=== PATIENT | female | born 1970 | race Caucasian/White ===

== ENCOUNTER 2024-08-06 06:32 | Observation (INO) | payer BC, OTHER ==
[2024-08-03 13:20] LABS: BASOPHILS # (AUTO) 0.1 (0.0-0.1); EOSINOPHILS # (AUTO) 0.1 (0.0-0.4); HEMATOCRIT 49.4 % (34.2-44.1); HEMOGLOBIN 15.6 g/dL (12.0-16.0); LYMPHOCYTES # (AUTO) 2.4 (1.0-3.2); LYMPHOCYTES % 35.8 % (18.0-39.1); MEAN CORPUSCULAR HEMOGLOBIN 29.9 pg (28-32); MEAN CORPUSCULAR HGB CONC 31.6 g/dL (31-35); MEAN CORPUSCULAR VOLUME 94.8 fL (81-99); MONOCYTES # (AUTO) 0.7 (0.2-0.8); MONOCYTES % 10.1 % (4.4-11.3); NEUTROPHILS # (AUTO) 3.5 (2.1-6.9); PLATELET COUNT 260 x10e3/uL (140-360); RED BLOOD COUNT 5.21 x10e6/uL (3.6-5.1); RED CELL DISTRIBUTION WIDTH 13.2 % (11.7-14.4); WHITE BLOOD COUNT 6.73 x10e3/uL (4.8-10.8)
[2024-08-03 13:24] LABS: INR 1.02; PROTHROMBIN TIME 13.9 seconds (11.9-14.5)
[2024-08-03 13:25] LABS: PARTIAL THROMBOPLASTIN TIME 25.1 seconds (23.8-35.5)
[2024-08-03 13:26] LABS: ANION GAP 11.8 mmol/L (8-16); CALCIUM 9.8 mg/dL (8.4-10.2); CREATININE, SERUM 0.88 mg/dL (0.57-1.11); POTASSIUM 4.8 mmol/L (3.5-5.1)
[~2024-08-06] VITALS: Ht 167.6 cm; Wt 75.0 kg
[~2024-08-06 06:32] MED LIST: ADDERALL 20 MG20 MG PO; CARVEDILOL3.125 MG PO; CLOPIDOGREL75 MG PO; CYMBALTA30 MG PO; FISH OIL 1,2001 EACH PO; LIPITOR20 MG PO; MAGNESIUM CITR125 MG PO; NEURONTIN300 MG PO; TOPAMAX50 MG PO
[2024-08-06] MEDS ORDERED: Vancomycin IV 1 GM VIAL ONE (07:09)
[2024-08-06] MEDS ORDERED: THROMBIN FOR SOLN 5,000 UNIT VIAL ONE (07:09)
[2024-08-06] MEDS: Vancomycin IV 1 GM VIAL ONE (07:32)
[2024-08-06] MEDS: SODIUM CHLORIDE 0.9% 250ML 250 ML ONE (07:33)
[2024-08-06] MEDS: LACTATED RINGER'S 1,000 ML ONE (07:34)
[2024-08-06] MEDS ORDERED: HYDROCODON-ACE1 EA12 PO (11:09)
[2024-08-06] MEDS ORDERED: MAGNESIUM/ALUMINUM/SIMETHICONE 30 ML UDC PO PRN (11:15)
[2024-08-06] MEDS ORDERED: MORPHINE SULFATE 5 MG/ML VIAL IM PRN (11:15)
[2024-08-06] MEDS: LACTATED RINGER'S 1,000 ML IV SCH (11:15)
[2024-08-06] MEDS ORDERED: ACETAMINOPHEN 325 MG TAB PO PRN (11:15)
[2024-08-06] MEDS ORDERED: ONDANSETRON HCL INJ 2MG/ML 2ML 2 MG/ML VIAL IV PRN (11:15)
[2024-08-06] MEDS ORDERED: PROMETHAZINE HCL (IM) 25 MG/ML VIAL IM PRN (11:15)
[2024-08-06] MEDS ORDERED: CARISOPRODOL 350 MG TAB PO PRN (11:15)
[2024-08-06] MEDS ORDERED: ZOLPIDEM TARTRATE 5 MG TAB PO PRN (11:15)
[2024-08-06] MEDS: FENTANYL CITRATE/PF 100MCG/2 ML INJ ONE (11:26)
[2024-08-06 12:15] VITALS: BP 138/92; PULSE 63; RESP 16; TEMP 98.2; O2SAT 96
[2024-08-06 12:45] VITALS: BP 138/90; PULSE 67; RESP 16; TEMP 98.2; O2SAT 95
[2024-08-06] MEDS ORDERED: SEVOFLURANE INHAL SOLN 250 ML PEN BTL ONE (13:14)
[2024-08-06] MEDS ORDERED: ACETAMINOPHEN 1000 MG/100 ML IV ONE (13:14)
[2024-08-06] MEDS ORDERED: ONDANSETRON HCL INJ 2MG/ML 2ML 2 MG/ML VIAL ONE (13:14)
[2024-08-06] MEDS ORDERED: MIDAZOLAM HCL 2 MG/2 ML VIAL ONE (13:14)
[2024-08-06] MEDS ORDERED: PROPOFOL IV EMULSION 10 MG/ML 20 ML VIAL ONE (13:14)
[2024-08-06] MEDS ORDERED: SUGAMMADEX SODIUM 200 MG/2 ML VIAL IV ONE (13:14)
[2024-08-06] MEDS ORDERED: FENTANYL CITRATE/PF 100MCG/2 ML INJ ONE (13:14)
[2024-08-06] MEDS ORDERED: LIDOCAINE HCL 2% LOCAL INJ 5 ML SDV VIAL INJ ONE (13:14)
[2024-08-06] MEDS ORDERED: METOCLOPRAMIDE HCL 10 MG/2ML VIAL ONE (13:14)
[2024-08-06] MEDS ORDERED: ROCURONIUM BROMIDE 10 MG/ML 5ML VIAL IV ONE (13:14)
[2024-08-06] MEDS ORDERED: EPHEDRINE SULFATE INJ 50 MG/ML VIAL ONE (13:14)
[2024-08-06] MEDS ORDERED: DEXAMETHASONE SOD PHOS INJ 4 MG/ML SDV ONE (13:14)
[2024-08-06] MEDS: GABAPENTIN 300 MG CAP PO SCH (14:10)
[2024-08-06] MEDS: HYDROMORPHONE 2MG/ML IV PRN (14:55)
[2024-08-06 16:32] VITALS: BP 112/75; PULSE 80; RESP 16; TEMP 97.7; O2SAT 93
[2024-08-06] MEDS: CARVEDILOL 3.125 MG TAB PO SCH (17:00)
[2024-08-06] MEDS: TOPIRAMATE 25 MG TAB PO SCH (17:00)
[2024-08-06] MEDS: OXYCODONE/ACETAMINOPHEN 5-325 1 EACH TABLET PO PRN (17:00)
[2024-08-06] MEDS ORDERED: NON-FORMULARY MEDICATION (Amphet Asp/Amphet/D-Amphet (Adderall 20 Mg Tablet) 20 MG) PO SCH (17:00)
[2024-08-06 20:00] VITALS: BP 121/80; PULSE 85; RESP 18; TEMP 97.4; O2SAT 100
[2024-08-06] MEDS: ATORVASTATIN 40 MG TAB PO SCH (20:36)
[2024-08-06] MEDS: CLOPIDOGREL BISULFATE 75 MG TAB PO SCH (20:36)
[2024-08-06 21:00] VITALS: BP 121/80; PULSE 85; RESP 18; TEMP 97.4; O2SAT 98
[2024-08-07] VITALS: BP 113/80; PULSE 75; RESP 18; TEMP 97.7; O2SAT 99
[2024-08-07 05:24] VITALS: BP 119/81; PULSE 71; RESP 16; TEMP 97.7; O2SAT 100
[2024-08-07 07:56] VITALS: BP 129/80; PULSE 66; RESP 18; TEMP 97.6; O2SAT 98
[2024-08-07] MEDS: DULOXETINE HCL 30 MG DELAYED RELEASE PO SCH (08:19)
[2024-08-07] MEDS: MAGNESIUM CITRATE 250 MG PO SCH (08:20)
[2024-08-07] MEDS: FISH OIL PO SCH (08:20)
[2024-08-07] MEDS: EPA PO SCH (08:20)
[2024-08-07] MEDS: DHA PO SCH (08:20)
[2024-08-07 08:49] VITALS: BP 129/80; PULSE 66; RESP 18; TEMP 97.6; O2SAT 98
== END 2024-08-07 09:35 | disposition home or self-care (01) ==
LOC: OR 06:32 → PACU V 11:07 → MED/SURG2 12:00
PROVIDERS: ADMIT Neurological Surgery; ATTEND Neurological Surgery
DX: M47.22 Other spondylosis with radiculopathy, cervical region (principal); M48.02 Spinal stenosis, cervical region; M50.122 Cervical disc disorder at C5-C6 level with radiculopathy; M50.123 Cervical disc disorder at C6-C7 level with radiculopathy; I25.10 Atherosclerotic heart disease of native coronary artery without angina pectoris; Z95.5 Presence of coronary angioplasty implant and graft; I25.2 Old myocardial infarction; E78.5 Hyperlipidemia, unspecified; F17.200 Nicotine dependence, unspecified, uncomplicated; E66.01 Morbid (severe) obesity due to excess calories; Z68.26 Body mass index [BMI] 26.0-26.9, adult; Z01.812 Encounter for preprocedural laboratory examination; Z01.810 Encounter for preprocedural cardiovascular examination; Z01.818 Encounter for other preprocedural examination; Z79.899 Other long term (current) drug therapy; Z79.02 Long term (current) use of antithrombotics/antiplatelets
CPT/HCPCS: 20931; 22551; 22552; 22845; 36415; 71046; 72040; 80048; 85025; 85610; 85730; 86850; 86900; 88304; 88311; 93005; C1713 ×4; C1763; G0378 ×2; J0131; J0690 ×2; J1100; J1170; J2003; J2250; J2405; J2704; J2765; J3010; J3370; J7050; J7121; 76000

== ENCOUNTER 2025-02-25 06:05 | Observation (INO) | payer BC, OTHER ==
[2025-02-24 09:44] LABS: BASOPHILS # (AUTO) 0.1 (0.0-0.1); BASOPHILS % 0.9 % (0.0-1.0); EOSINOPHILS # (AUTO) 0.1 (0.0-0.4); EOSINOPHILS % 1.5 % (0.0-6.0); HEMATOCRIT 47.6 % (34.2-44.1); HEMOGLOBIN 15.7 g/dL (12.0-16.0); LYMPHOCYTES # (AUTO) 2.2 (1.0-3.2); LYMPHOCYTES % 41.1 % (18.0-39.1); MEAN CORPUSCULAR HEMOGLOBIN 29.5 pg (28-32); MEAN CORPUSCULAR VOLUME 89.3 fL (81-99); MONOCYTES # (AUTO) 0.6 (0.2-0.8); MONOCYTES % 10.6 % (4.4-11.3); NEUTROPHILS # (AUTO) 2.5 (2.1-6.9); NEUTROPHILS % 45.9 % (38.7-80.0); PLATELET COUNT 267 x10e3/uL (140-360); RED BLOOD COUNT 5.33 x10e6/uL (3.6-5.1); RED CELL DISTRIBUTION WIDTH 13.2 % (11.7-14.4); WHITE BLOOD COUNT 5.45 x10e3/uL (4.8-10.8)
[2025-02-24 10:15] LABS: INR 1.01; PROTHROMBIN TIME 13.9 seconds (11.9-14.5)
[2025-02-24 10:16] LABS: PARTIAL THROMBOPLASTIN TIME 24.5 seconds (23.8-35.5)
[2025-02-24 10:20] LABS: ANION GAP 11.9 mmol/L (8-16); CALCIUM 9.5 mg/dL (8.4-10.2); CREATININE, SERUM 0.82 mg/dL (0.57-1.11); POTASSIUM 4.9 mmol/L (3.5-5.1)
[~2025-02-25] VITALS: Ht 167.6 cm; Wt 68.9 kg
[~2025-02-25 06:05] MED LIST changes: +HYDROCODON-ACE1 EA12 PO
[2025-02-25] MEDS ORDERED: FENTANYL CITRATE/PF 100MCG/2 ML INJ ONE (07:07)
[2025-02-25] MEDS ORDERED: LIDOCAINE HCL 2% LOCAL INJ 5 ML SDV VIAL INJ ONE (07:07)
[2025-02-25] MEDS ORDERED: ROCURONIUM BROMIDE 1 ML IV ONE (07:07)
[2025-02-25] MEDS ORDERED: SEVOFLURANE INHAL SOLN 250 ML PEN BTL ONE (07:08)
[2025-02-25] MEDS ORDERED: MIDAZOLAM HCL 2 MG/2 ML VIAL ONE (07:08)
[2025-02-25] MEDS ORDERED: PROPOFOL IV EMULSION 10 MG/ML 20 ML VIAL ONE (07:08)
[2025-02-25] MEDS ORDERED: ACETAMINOPHEN 1000 MG/100 ML 100 ML IV ONE (07:08)
[2025-02-25] MEDS ORDERED: KETAMINE HCL INJ 50 MG/ML 10 ML VIAL ONE (07:21)
[2025-02-25] MEDS ORDERED: FAMOTIDINE 20 MG/2 ML VIAL IV ONE (07:34)
[2025-02-25] MEDS: LACTATED RINGER'S 1,000 ML ONE (07:42)
[2025-02-25] MEDS: Vancomycin IV 1 GM VIAL ONE (07:43)
[2025-02-25] MEDS: SODIUM CHLORIDE 0.9% 250ML 250 ML ONE (07:43)
[2025-02-25] MEDS ORDERED: ONDANSETRON HCL INJ 2MG/ML 2ML 2 MG/ML VIAL ONE (08:14)
[2025-02-25] MEDS ORDERED: DEXAMETHASONE SOD PHOS INJ 4 MG/ML SDV ONE (08:14)
[2025-02-25] MEDS ORDERED: SUGAMMADEX SODIUM 200 MG/2 ML VIAL IV ONE (08:59)
[2025-02-25] MEDS: FENTANYL CITRATE/PF 100MCG/2 ML INJ ONE (09:40)
[2025-02-25] MEDS ORDERED: MORPHINE SULFATE 5 MG/ML VIAL IM PRN (09:45)
[2025-02-25] MEDS ORDERED: ACETAMINOPHEN 325 MG TAB PO PRN (09:45)
[2025-02-25] MEDS ORDERED: ONDANSETRON HCL INJ 2MG/ML 2ML 2 MG/ML VIAL IV PRN (09:45)
[2025-02-25] MEDS ORDERED: CARISOPRODOL 350 MG TAB PO PRN (09:45)
[2025-02-25] MEDS ORDERED: ZOLPIDEM TARTRATE 5 MG TAB PO PRN (09:45)
[2025-02-25] MEDS ORDERED: OXYCODONE/ACETAMINOPHEN 5-325 1 EACH TABLET PO PRN ×2 (09:45→13:00)
[2025-02-25] MEDS ORDERED: PROMETHAZINE HCL (IM) 25 MG/ML VIAL IM PRN (09:45)
[2025-02-25] MEDS ORDERED: MAGNESIUM/ALUMINUM/SIMETHICONE 30 ML UDC PO PRN (09:45)
[2025-02-25] MEDS: HYDROMORPHONE 2MG/ML IV PRN (10:05)
[2025-02-25 10:45] VITALS: BP 127/80; PULSE 65; RESP 17; TEMP 97.4; O2SAT 98
[2025-02-25] MEDS: CEFAZOLIN SODIUM 2 GM ONE (10:50)
[2025-02-25 11:00] VITALS: BP 127/80; PULSE 65; RESP 17; TEMP 97.4; O2SAT 98
[2025-02-25] MEDS: HYDROMORPHONE 1MG/1ML INJ ONE (11:28)
[2025-02-25] MEDS: LACTATED RINGER'S 1,000 ML IV SCH (13:42)
[2025-02-25] MEDS: LACTOBACILLUS ACIDOPHILUS CAPSULE PO SCH (13:42)
[2025-02-25] MEDS: Vancomycin IV 1 GM in SODIUM CHLORIDE 0.9% 250ML 250 ML IV SCH (13:42)
[2025-02-25] MEDS: GABAPENTIN 300 MG CAP PO SCH (14:07)
[2025-02-25 16:00] VITALS: BP 99/61; PULSE 68; RESP 17; TEMP 97.6; O2SAT 95
[2025-02-25] MEDS: TOPIRAMATE 25 MG TAB PO SCH (18:29)
[2025-02-25] MEDS: AMPHETAMINE PO SCH (18:30)
[2025-02-25] MEDS: DEXTROAMPHETAMINE PO SCH (18:30)
[2025-02-25 20:00] VITALS: BP 106/69; PULSE 67; RESP 20
[2025-02-25] MEDS: ATORVASTATIN 20 MG TAB PO SCH (20:27)
[2025-02-25 21:00] VITALS: BP 106/69; PULSE 67; RESP 20; TEMP 97.6; O2SAT 95
[2025-02-26] VITALS: BP 98/66; PULSE 66; RESP 20; TEMP 97.8; O2SAT 92
[2025-02-26 04:00] VITALS: BP 94/62; PULSE 60; RESP 20; TEMP 98.1; O2SAT 94
[2025-02-26 08:03] VITALS: BP 109/79; PULSE 72; RESP 17; TEMP 98.4; O2SAT 96
[2025-02-26] MEDS: DHA PO SCH (08:49)
[2025-02-26] MEDS: MAGNESIUM CITRATE 250 MG PO SCH (08:49)
[2025-02-26] MEDS: FISH OIL PO SCH (08:49)
[2025-02-26] MEDS: DULOXETINE HCL 30 MG DELAYED RELEASE PO SCH (08:49)
[2025-02-26] MEDS: EPA PO SCH (08:49)
[2025-02-26 09:04] VITALS: BP 109/79; PULSE 72; RESP 17; TEMP 98.4; O2SAT 96
== END 2025-02-26 09:15 | disposition home or self-care (01) ==
LOC: OR 06:05 → PACU V 09:32 → MED/SURG2 10:49
PROVIDERS: ADMIT Neurological Surgery; ATTEND Neurological Surgery
DX: M51.17 Intervertebral disc disorders with radiculopathy, lumbosacral region (principal); I25.10 Atherosclerotic heart disease of native coronary artery without angina pectoris; Z95.5 Presence of coronary angioplasty implant and graft; Z87.891 Personal history of nicotine dependence
CPT/HCPCS: 36415; 63047; 71046; 72020; 80048; 85025; 85610; 85730; 86850; 86900; 88304; 88311; 93005; G0378 ×2; J0131; J1100; J1171 ×2; J1308; J2003; J2250; J2405; J2704; J3010; J3370; J7050; J7121